=== PATIENT | female | born 1995 | race Caucasian/White ===

== ENCOUNTER 2017-01-12 22:20 | Emergency (ER) | payer OTHER | END 2017-01-13 05:18 | disposition home or self-care (01) | LOC: ER1 22:20 | DX: K08.89 Other specified disorders of teeth and supporting structures (principal); F17.290 Nicotine dependence, other tobacco product, uncomplicated | CPT/HCPCS: 64402; 99282 ==

== ENCOUNTER 2017-01-20 15:59 | Emergency (ER) | payer OTHER | END 2017-01-20 17:00 | disposition home or self-care (01) | LOC: ER1 15:59 | DX: K04.7 Periapical abscess without sinus (principal) | CPT/HCPCS: 96372; 99282; J1885 ==

== ENCOUNTER 2022-02-08 23:55 | Emergency (ER) | payer OTHER ==
[2022-02-09 00:20] LABS: HEMOGLOBIN 13.7 gm/dl (12.3-15.3); RED BLOOD COUNT 4.56 M/UL (4.00-5.10); WHITE BLOOD COUNT 12.9 K/UL (4.5-11.0)
[2022-02-09 00:58] LABS: BUN/CREATININE RATIO 10 (0-10)
== END 2022-02-09 00:19 | disposition left against medical advice (07) ==
LOC: ER1 23:55
PROVIDERS: Student in an Organized Health Care Education/Training Program
DX: R07.9 Chest pain, unspecified (principal); F17.220 Nicotine dependence, chewing tobacco, uncomplicated
CPT/HCPCS: 71045; 80053; 82550; 82553; 84484; 85025; 93005; 99283